=== PATIENT | female | born 2000 | race Two or more races ===

== ENCOUNTER 2022-11-28 08:49 | Emergency (ER) | payer MEDICAID ==
[~2022-11-28] VITALS: Ht 172.7 cm; Wt 92.7 kg
[~2022-11-28 08:49] MED LIST: IBUP-1456 PO
[2022-11-28 09:02] VITALS: BP 113/67; PULSE 68; RESP 18; TEMP 97; O2SAT 99
[2022-11-28] MEDS ORDERED: IBUP-1456 PO (10:36)
== END 2022-11-28 10:41 | disposition home or self-care (01) ==
LOC: ER 08:49
DX: S46.912A Strain of unspecified muscle, fascia and tendon at shoulder and upper arm level, left arm, initial encounter (principal); X50.0XXA Overexertion from strenuous movement or load, initial encounter; Y93.89 Activity, other specified; Y92.89 Other specified places as the place of occurrence of the external cause; Y99.8 Other external cause status
CPT/HCPCS: 73030

== ENCOUNTER 2023-05-21 10:37 | Emergency (ER) | payer MEDICAID ==
[~2023-05-21] VITALS: Ht 165.1 cm; Wt 87.1 kg
[2023-05-21 11:02] LABS: Basophils # (auto) 0 10 ^3/uL (0-0.2); Basophils % (auto) 0.3 % (0.0-2.0); Eosinophils # (auto) 0 10 ^3/uL (0-0.8); Eosinophils % (auto) 0.9 % (0.0-7.0); Hematocrit 41.1 % (36.0-46.0); Hemoglobin 13.3 g/dL (12.2-16.2); Lymphocytes # (auto) 2.2 10 ^3/uL (0.4-5.4); Lymphocytes % (auto) 40.4 % (10.0-50.0); Mean Corpuscular Hemoglobin 27.2 pg (28.0-32.0); Mean Corpuscular Hgb Conc. 32.5 g/dL (32.0-36.0); Mean Corpuscular Volume 83.7 fL (80.0-100.0); Monocytes # (auto) 0.4 10 ^3/uL (0-1.3); Monocytes % (auto) 7.9 % (0.0-12.0); Neutrophils # (auto) 2.8 10 ^3/uL (1.6-8.6); Neutrophils % (auto) 50.5 % (37.0-80.0); Nucleated Red Blood Cells % 0.2 %; Red Blood Cells 4.91 10^6/uL (4.0-5.20); Red Cell Distribution Width 13.5 % (11.8-14.3); White Blood Cell 5.5 10^3/uL (4.4-10.8)
[2023-05-21 11:20] LABS: Urine Bacteria FEW /hpf (None Seen); Urine Blood Negative /uL (Negative); Urine Clarity HAZY (Clear); Urine Protein, UAD Negative (Negative); Urine Specific Gravity 1.007 (1.001-1.035); Urine Urobilinogen Normal (Negative); Urine WBC 1 /hpf (0 - 5)
[2023-05-21 11:21] LABS: Urine Color STRAW (Yellow)
[2023-05-21 11:21] LABS: Albumin 4.7 g/dL (3.2-4.8); Alkaline Phosphatase 63 U/L (46-116); Anion Gap 5 (5-15); Aspartate Aminotransferase 34 U/L (13-40); Bilirubin, Total 0.4 mg/dL (0.2-1.0); Carbon Dioxide 25 mmol/L (20-30); Chloride 110 mmol/L (98-107); Glucose 92 mg/dL (74-106); Sodium 140 mmol/L (136-145)
[2023-05-21 11:32] LABS: Alanine Aminotransferase 25 U/L (7-40); BUN/Creatinine Ratio 13.1 (10.0-20.0); Blood Urea Nitrogen 8 mg/dL (9-23); Potassium 4.8 mmol/L (3.5-5.1)
[2023-05-21] MEDS: ALBUTEROL SULF 2.5 MG/0.5ML(0.5%) NEB SOLN NEB ONE (15:52)
[2023-05-21] MEDS: IPRATROPIUM BROM 0.5 MG/2.5ML INH SOL NEB ONE (15:52)
[2023-05-21] MEDS: NITROGLYCERIN 0.4 MG SL TAB SL ONE (16:58)
[2023-05-21] MEDS: KETOROLAC TROMETH 60MG/2ML VIAL IM ONE (17:01)
[2023-05-21 17:06] VITALS: BP 123/60; PULSE 68; RESP 20; TEMP 97.8; O2SAT 100
== END 2023-05-21 17:29 | disposition home or self-care (01) ==
LOC: ER 10:37
DX: R07.89 Other chest pain (principal); R10.2 Pelvic and perineal pain
CPT/HCPCS: 36415; 71045; 80053; 81001; 83880; 84484; 84702; 85025; 85379; 93005; 94640; 96372; 99285; J1885; J7644

== ENCOUNTER 2023-10-20 13:55 | Emergency (ER) | payer MEDICAID ==
[~2023-10-20] VITALS: Ht 165.1 cm; Wt 84.0 kg
[2023-10-20 16:05] VITALS: BP 126/72; PULSE 78; RESP 17; TEMP 98.7; O2SAT 100
[2023-10-20] MEDS ORDERED: IBUP1TAB5 PO (16:28)
[2023-10-20] MEDS: ONDANSETRON ODT 4 MG TAB PO ONE (16:29)
== END 2023-10-20 16:39 | disposition home or self-care (01) ==
LOC: ER 13:59
DX: S00.83XA Contusion of other part of head, initial encounter (principal); W18.09XA Striking against other object with subsequent fall, initial encounter; Y93.89 Activity, other specified; Y92.89 Other specified places as the place of occurrence of the external cause; Y99.8 Other external cause status
CPT/HCPCS: 70450; 99284; Q0162

== ENCOUNTER 2024-01-30 14:15 | Emergency (ER) | payer MEDICAID, OTHER ==
[~2024-01-30] VITALS: Ht 165.1 cm; Wt 85.2 kg
[~2024-01-30 14:15] MED LIST changes: +IBUP1TAB5 PO
[2024-01-30 14:47] VITALS: BP 131/70
--- NOTE | 2024-01-30 14:57 | ED.PDOC ---
History of Present Illness HPI Comments 23Y F presents to ED for chief complaint lower back pain and gluteal pain x8days. Pt describes pain as "pulling". Pt denies trauma. Pt denies n/v/d, melena, rectal bleeding, and chest pain. Pt is currently not on menstrual cycle. No known allergies. Chief Complaint: Back Pain Time Seen by MD: 14:47 Primary Care Provider: RENNY Esquivel Notes: Medications, Allergies Allergies: Coded Allergies: NO KNOWN ALLERGIES (Unverified , 05/13/22) Home Meds Active Scripts Ibuprofen Micronized (Ibuprofen) 600 Mg Tab, 600 MG PO TIDP PRN for 10 Days, #30 TAB 0 Refills Prov:ADAM TAVERA [employer] 10/20/23 Ibuprofen (Ibuprofen) 800 Mg Tab, 1 TAB PO TID, #30 TAB Prov:WES GRAVES 11/28/22 Ibuprofen (Ibuprofen) 800 Mg Tab, 1 TAB PO TID PRN, #30 TAB 0 Refills Prov:YOSELIN DELAROSA 05/13/22 Information Source: Patient Mode of Arrival: Ambulatory Severity: Mild Timing: Days Duration: Since onset Past Medical History PAST MEDICAL HISTORY: Depression Surgical History: Denies all surgeries 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 WRINGER 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: 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 all 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 Hx Family History Family History: Reviewed,noncontributory to illness Social History Smoker: Non-Smoker Alcohol: Denies ETOH Use Drugs: Denies Drug Use Lives In: Home Constitutional: denies: chills, diaphoresis, fatigue, fever, malaise, sweats, weakness, others EENTM: denies: blurred vision, double vision, ear bleeding, ear discharge, ear drainage, ear pain, ear ringing, eye pain, eye redness, hearing loss, mouth tomer n, mouth swelling, nasal discharge, nose bleeding, nose congestion, nose pain, photophobia, tearing, throat pain, throat swelling, voice changes, others Respiratory: denies: cough, hemoptysis, orthopnea, SOB at rest, shortness of breath, SOB with excertion, stridor, wheezing, others Cardiovascular: denies: chest pain, dizzy spells, diaphoresis, Dyspnea on exertion, edema, irregular heart beat, left arm pain, lightheadedness, palpitations, PND, syncope, others Gastrointestinal: denies: abdomen distended, abdominal pain, blood streaked bowels, constipated, diarrhea, dysphagia, difficulty swallowing, hematemesis, melena, nausea, poor appetite, poor fluid intake, rectal bleeding, rectal pain, vomiting, others Genitourinary: denies: abnormal vagina bleeding, burning, dyspareunia, dysuria, flank pain, frequency, hematuria, incontinence, pain, , vagina discharge, urgency, others Neurological: denies: dizziness, fainting, headache, left sided numbness, left sided weakness, numbness, paresthesia, pre-existing deficit, right sided numbness, right sided weakness, seizure, speech problems, tingling, tremors, weakness, others Musculoskeletal: reports: back pain, others (gluteal pain); denies: gout, joint pain, joint swelling, muscle pain, muscle stiffness, neck pain Integumetry: denies: bruises, change in color, change in hair/nails, dryness, laceration, lesions, lumps, rash, wounds, others Allergic/Immunocompromised: denies: Difficulty Healing, Frequent Infections, Hives, Itching, others Hematologic/Lymphatic: denies: anemia, blood clots, easy bleeding, easy bruising, swollen glands, others Endocrine: denies: excessive hunger, excessive sweating, excessive thirst, excessive urination, flushing, intolerance to cold, intolerance to heat, unexplained weight gain, unexplained weight loss, others Psychiatric: denies: anxiety, bipolar disorder, depression, hopeless, panic disorder, schizophrenia, sleepless, suicidal, others All Other Systems: Reviewed and Negative Physical Exam General Appearance: Mild Distress, Normal HEENT: Normal ENT Inspection, Pharynx Normal, TMs Normal Neck: Full Range of Motion, Non-Tender, Normal, Normal Inspection Respiratory: Chest Non-Tender, Lungs Clear, No Accessory Muscle Use, No Respiratory Distress, Normal Breath Sounds Cardiovascular: No Edema, No JVD, No Murmur, No Gallop, Normal Peripheral Pulses, Regular Rate/Rhythm Breast Exam: Deferred Gastrointestinal: No Organomegaly, Non Tender, No Pulsatile Mass, Normal Bowel Sounds, Soft Genitalia: Deferred Pelvic: Deferred Rectal: Deferred Extremities: No calf tenderness, Normal capillary refill, Normal inspection, Normal range of motion, Non-tender, No pedal edema Musculoskeletal : Apperance: Normal Neurologic: Alert, machinery cleaner II-XII nml as Tested, No Motor Deficits, Normal Affect, Normal Mood, No Sensory Deficits Cerebellar Function: Normal Reflexes: Normal Skin: Dry, Normal Color, Warm Peripheral Pulses: 3+ Radial (R), 3+ Radial (L) Lymphatic: No Adenopathy Was a procedure done? Was a procedure done?: No Differential Dx Considerations may include: Hemorrhoid Electrolyte imbalance X-Ray, Labs, Meds, VS Vital Signs Date Time Temp Pulse Resp B/P (MAP) Pulse Ox O2 Delivery O2 Flow Rate FiO2 01/30/24 14:47 98.7 78 14 131/70 (90) 96 Patient alert. Complaining of pain in the buttock. Vitals stable. Answering all questions. Ambulating. No sign of distress. Possible hemorrhoid pain Was given prescription for Anusol. Explained to the patient. Was told to follow up with her primary care physician. Was told to come back if there is any problem. Time of 1ST Reevaluation: 15:17 Reevaluation 1ST: Unchanged Patient Education/Counseling: Diagnosis, Treatment Family Education/Counseling: No Family Present Departure 1 Departure Time of Disposition: 15:35 Impression: Primary Impression: Hemorrhoid Qualified Codes: K64.9 - Unspecified hemorrhoids Disposition: 01 HOME / SELF CARE / HOMELESS Condition: Good e-Prescriptions Hydrocortisone Base (Anusol-Hc) 2.5 % Cre 1 APPLIC TOP BID for 5 Days, #5 GRAMS 1 Refill Prov: NICO CHAVES MD 01/30/24 Discharged With: Self Critical Care Note Critical Care Time?: No Stability Stability form required: No Heart Score Heart Score: Heart Score Response (Comments) Value History N/A 0 EKG N/A 0 Age N/A 0 Risk Factors N/A 0 Troponin N/A 0 Total 0 I personally scribed for NICO CHAVES MD ([email or web address]) on 01/30/24 at 14:57. Electronically submitted by Tresa Drummond ([email or web address]). NICO CHAVES MD Jan 30, 2024 14:57
[2024-01-30] MEDS ORDERED: HYDR2.5C39 TOP (15:36)
[2024-01-30] MEDS: HYDROcodone-ACET 5/325MG TAB PO ONE (15:58)
[2024-01-30 15:59] VITALS: PULSE 90; RESP 20; O2SAT 98
== END 2024-01-30 16:30 | disposition home or self-care (01) ==
LOC: ER 14:21
DX: K64.9 Unspecified hemorrhoids (principal); F32.A Depression, unspecified; Z79.899 Other long term (current) drug therapy